=== PATIENT | male | born 1940 | race Caucasian/White ===

== ENCOUNTER 2016-09-06 04:23 | Emergency (ER) | payer MEDICARE, OTHER ==
[2016-09-06 05:18] VITALS: BP 123/65
--- NOTE | 2016-09-06 05:26 | ED ---
Harinder Carias Aidan, scribed for Delgado Gibson MD on 09/06/16 at 0503 . Lower Extremity - HPI Summary HPI Summary: 75 y/o male presents to the ED with a complaint of acute, moderate (8/10) episodes of LLE pain described as a cramping sensation that began 3 weeks ago. As a result of the pain, he saw Dr. Elkins who diagnosed him with a ganglion cyst on the left knee. Additionally, Dr. Elkins started the patient on a physical therapy regime that seemed to have exacerbated his leg pain. The pain is alleviated by standing on the left leg and aggravated when sitting down. Currently, he has no pain. Pt denies any Hx of clitting/DVT. 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 - History of Current Complaint Chief Complaint: EDExtremityLower Stated Complaint: LEFT LEG PAIN Time Seen by Provider: 09/06/16 04:36 Hx Obtained From: Patient Mechanism Of Injury: Unknown - possibly exacerbated by physical therapy Onset of Pain: Days - pain began 3 weeks ago and has persisted intermittently Onset/Duration: Weeks - pain is still present Severity Initially: Moderate Severity Currently: Moderate Pain Intensity: 8 Pain Scale Used: 0-10 Numeric Timing: Intermittent Location: Is Discrete @ - LLE, notibly in the hamstring and knee Character Of Pain: Aching Associated Signs And Symptoms: Positive: Knee Pain - left knee, Other - left knee ganglion cyst Aggravating Factor(s): Other - sitting down aggravates the pain Alleviating Factor(s): Other - standing on the left leg alleviates the pain Able to Bear Weight: Yes - Risk Factors Gout Risk Factors: Age Over 40, Male DVT Risk Factors: Smoking - Allergies/Home Medications Allergies/Adverse Reactions: Allergies Allergy/AdvReac Type Severity Reaction Status Date / Time No Known Allergies Allergy Verified 05/24/15 12:44 PMH/Surg Hx/FS Hx/Imm Hx Endocrine/Hematology History: Denies: Hx Diabetes Cardiovascular History: Reports: Hx Coronary Artery Disease, Hx Deep Vein Thrombosis, Hx Hypercholesterolemia, Hx Hypertension Denies: Hx Pacemaker/ICD Respiratory History: Reports: Other Respiratory Problems/Disorders - suspected apnea, witnessed apneas Denies: Hx Asthma Comment Only: Hx Sleep Apnea - Hx OF BEING EVALUATED CURRENTLY, APPT FEB 2013 GI History: Reports: Other GI Disorders - umbilical hernia repairs History: Reports: Other Problems/Disorders - bladder cancer, prostate removed Denies: Hx Renal Disease Musculoskeletal History: Reports: Hx Arthritis - HANDS, FEET, HIPS, Hx Back Problems - HX transverse process FX's, Other Musculoskeletal History - LUMBAR BACK PROBLEMS Sensory History: Reports: Hx Contacts or Glasses - GLASSES, 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 LAMINECTOMY L2-3,L3-4,L5-S1 02/16/13. right total hip Hx Anesthesia Reactions: No Infectious Disease History: No Infectious Disease History: Reports: Hx of Known/Suspected MRSA Denies: Hx Clostridium Difficile, Hx Hepatitis, Hx Human Immunodeficiency Virus (HIV), Hx Shingles, Hx Tuberculosis, Hx Known/Suspected VRE, Hx Known/ Suspected VRSA, History Other Infectious Disease, Traveled Outside the [place] in Last 30 Days - Family History Known Family History: Negative: Cardiac Disease - Social History Occupation: Retired Lives: With Family Alcohol Use: None Hx Substance Use: No Substance Use Type: Reports: None Hx Tobacco Use: Yes Smoking Status (MU): Heavy Every Day Tobacco Smoker Type: Cigarettes Amount Used/How Often: smoked 1ppd for 50+ years Length of Time of Smoking/Using Tobacco: 50+ years Have You Smoked in the Last Year: Yes Review of Systems Constitutional: Negative Eyes: Negative ENT: Negative Cardiovascular: Negative Respiratory: Negative Gastrointestinal: Negative Genitourinary: Negative Positive: Arthralgia - LLe pain, Other - ganglion cyst to left knee. Negative: Myalgia, Decreased ROM, Edema Skin: Negative Neurological: Negative Psychological: Normal All Other Systems Reviewed And Are Negative: Yes Physical Exam Triage Information Reviewed: Yes Vital Signs On Initial Exam: Initial Vitals Temp Pulse Resp BP Pulse Ox 98.7 F 83 16 137/75 97 09/06/16 04:25 09/06/16 04:25 09/06/16 04:25 09/06/16 04:25 09/06/16 04:25 Vital Signs Reviewed: Yes Appearance: Positive: No Pain Distress, Thin Skin: Positive: Warm Eyes: Positive: ELIAS ENT: Positive: Hearing grossly normal Respiratory/Lung Sounds: Positive: Breath Sounds Present Musculoskeletal: Positive: Other - no palpabe tenderness, mild pain with flexion at knee. Negative: Jeison Sign Left, Jeison Sign Right Neurological: Positive: Alert, Oriented to Person Place, Time Diagnostics - Vital Signs Vital Signs Temp Pulse Resp BP Pulse Ox 09/06/16 04:33 81 98 09/06/16 04:31 137/75 09/06/16 04:25 98.7 F 83 16 137/75 97 - Laboratory Lab Statement: Any lab studies that have been ordered have been reviewed, and results considered in the medical decision making process. Lower Extremity Course/Dx - Course Course Of Treatment: 75 y/o male presents to the ED with a complaint of acute, moderate (8/10) episodes of LLE pain described as a cramping sensation that began 3 weeks ago. He intends on following up with his primary to see whether or not to discontinue or change his current physican therapy regime that may have exacerbated his leg pain. - Diagnoses Provider Diagnoses: Leg pain Discharge - Discharge Plan Condition: Stable Disposition: HOME Discharge Disposition Comment: Please follow up with your primary care physician. Prescriptions: Naproxen TAB* [Naprosyn 250 mg TAB*] 500 mg PO BID #30 tab Patient Education Materials: Knee Pain (ED) Referrals: Felix May MD [Primary Care Provider] - The documentation as recorded by the Harinder simon Aidan accurately reflects the service I personally performed and the decisions made by me, Delgado Gibson MD.
== END 2016-09-06 05:15 | disposition home or self-care (01) ==
LOC: ED 04:23
DX: M79.605 Pain in left leg (principal); M67.462 Ganglion, left knee; M25.562 Pain in left knee; F17.210 Nicotine dependence, cigarettes, uncomplicated
CPT/HCPCS: 99282

== ENCOUNTER 2018-04-12 09:19 | Day surgery (SDC) | payer MEDICARE, OTHER ==
[~2018-04-12 09:19] MED LIST: Acetaminophen TAB* 325 MG PO PRN; Buffered Lidocaine 0.9% SYRIN* 5 ML/SYR SYRINGE INTRADERM ONE
[2018-04-12] MEDS ORDERED: Midazolam* 1 MG/ML 2 ML VIAL (2 MG) ONE (09:52)
[2018-04-12 10:49] VITALS: BP 149/67
[2018-04-12] MEDS ORDERED: acetaZOLAMIDE TAB* 250 MG ONE (13:59)
[2018-04-12] MEDS ORDERED: Tetracaine 0.5% OPTH.SOL 4 ML* 1 DROP BTL ONE (13:59)
[2018-04-12] MEDS ORDERED: Tropicamide 1% OPTH.SOL* BTL ONE (13:59)
[2018-04-12] MEDS ORDERED: Ketorolac 0.5% OPHTH (NF) 0.5 % 5 ML BTL ONE (13:59)
[2018-04-12] MEDS ORDERED: Cyclopentolate 1% OPTH.SOL* 2 ML BTL ONE (13:59)
[2018-04-12] MEDS ORDERED: Lidocaine 1%* 5 ML VIAL ONE (13:59)
[2018-04-12] MEDS ORDERED: Phenylephrine 2.5% OPTH.SOL* 2 ML BTL ONE (13:59)
[2018-04-12] MEDS ORDERED: Neomycin/Polymy/Dex OPHTH.OIN* 3.5 GM ONE (13:59)
[2018-04-12] MEDS ORDERED: Povidone Iodine 5% OPTH* 30 ML BTL ONE (13:59)
--- NOTE | 2018-04-12 22:08 | OP ---
DATE OF OPERATION: 04/12/18 - [facility] DATE OF : 42. SURGEON: Jagjit Collier MD. ANESTHESIA: Monitored anesthesia care. PREOPERATIVE DIAGNOSIS: Cataract, right eye. POSTOPERATIVE DIAGNOSIS: Cataract, right eye. OPERATIVE PROCEDURE: Extracapsular cataract extraction of the right eye with intraocular lens implant. IMPLANT: SN60WF 21.0 diopter lens to the right eye. COMPLICATIONS: None. DESCRIPTION OF PROCEDURE: The patient was given phenylephrine 2.5 % and cyclopentolate 1% eye drops to the operative eye in the preoperative area. The patient was taken to the operating room where a time-out was taken to identify the correct patient, site, and side of surgery. The patient's right eye was prepped and draped in the usual sterile fashion with 5% Betadine. A second time -out was taken to verify the correct patient, side, and site of surgery, as well as the correct lens implant. A lid speculum was placed to the right eye. A 1-mm paracentesis blade was used to make a clear corneal incision. Preservative-free 1% lidocaine was injected into the anterior chamber. DisCoVisc was then injected into the anterior chamber. A 2.75 mm keratome blade was used to make a triplanar incision. A cystotome initiated a capsulorrhexis, which was completed with Utrata forceps in a continuous and curvilinear manner. Hydrodissection of the lens was performed with BSS on a cannula. The lens could be spun in a capsular bag. The phacoemulsification handpiece was used with a [id number] technique to remove the nucleus. The I/A handpiece then removed the residual cortical lens material. DisCoVisc was injected to inflate the capsular bag. The planned SN60WF 21.0 diopter lens was injected into the capsular bag. The residual DisCoVisc was removed from the eye with the I/A handpiece. The corneal incisions were hydrated and no leaks occurred at physiologic pressure around 20 mmHg per palpation. The lid speculum was removed and drapes were removed. Maxitrol ointment was placed to the surface of the operative eye. An adhesive patch and shield was then placed on the operative eye. The patient was taken to the postoperative area in stable condition. [id number]/[facility] #: [id number] [facility]
== END 2018-04-12 10:54 | disposition home or self-care (01) ==
LOC: OREAST 09:19
PROVIDERS: ATTEND Student in an Organized Health Care Education/Training Program
DX: H25.11 Age-related nuclear cataract, right eye (principal); I10 Essential (primary) hypertension; Z85.51 Personal history of malignant neoplasm of bladder; I25.10 Atherosclerotic heart disease of native coronary artery without angina pectoris; H61.23 Impacted cerumen, bilateral; Z72.0 Tobacco use
CPT/HCPCS: A9270-GY; J2250; V2632

== ENCOUNTER 2018-04-19 08:36 | Day surgery (SDC) | payer MEDICARE, OTHER ==
[2018-04-19] MEDS ORDERED: fentaNYL* 50 MCG/ML 2 ML VIAL (100 MCG VIAL) ONE (09:03)
[2018-04-19] MEDS ORDERED: Midazolam* 1 MG/ML 2 ML VIAL (2 MG) ONE (09:03)
[2018-04-19 10:07] VITALS: BP 115/53
[2018-04-19] MEDS ORDERED: Phenylephrine 2.5% OPTH.SOL* 2 ML BTL ONE (11:00)
[2018-04-19] MEDS ORDERED: acetaZOLAMIDE TAB* 250 MG ONE (11:00)
[2018-04-19] MEDS ORDERED: Cyclopentolate 1% OPTH.SOL* 2 ML BTL ONE (11:00)
[2018-04-19] MEDS ORDERED: Neomycin/Polymy/Dex OPHTH.OIN* 3.5 GM ONE (11:00)
[2018-04-19] MEDS ORDERED: Ketorolac 0.5% OPHTH (NF) 0.5 % 5 ML BTL ONE (11:00)
[2018-04-19] MEDS ORDERED: Lidocaine 1%* 5 ML VIAL ONE (11:00)
[2018-04-19] MEDS ORDERED: Tetracaine 0.5% OPTH.SOL 4 ML* 1 DROP BTL ONE (11:00)
[2018-04-19] MEDS ORDERED: Povidone Iodine 5% OPTH* 30 ML BTL ONE (11:00)
[2018-04-19] MEDS ORDERED: Tropicamide 1% OPTH.SOL* BTL ONE (11:00)
--- NOTE | 2018-04-19 11:08 | OP ---
DATE OF OPERATION: 04/19/2018 - [facility] DATE OF : 1940. SURGEON: Jagjit Collier MD ANESTHESIA: Monitored anesthesia care. PREOPERATIVE DIAGNOSIS: Cataract, left eye. POSTOPERATIVE DIAGNOSIS: Cataract, left eye. OPERATIVE PROCEDURE: Extracapsular cataract extraction of the left eye with intraocular lens implant. IMPLANT: SN60WF 21.0 diopter lens to the left eye. COMPLICATIONS: None. DESCRIPTION OF PROCEDURE: The patient was given phenylephrine 2.5 % and cyclopentolate 1% eye drops to the operative eye in the preoperative area. The patient was taken to the operating room where a time-out was taken to identify the correct patient, site, and side of surgery. The patient's left eye was prepped and draped in the usual sterile fashion with 5% Betadine. A second time- out was taken to verify the correct patient, side, and site of surgery, as well as the correct lens implant. A lid speculum was placed to the left eye. A 1mm paracentesis blade was used to make a clear corneal incision. Preservative-free 1% lidocaine was injected into the anterior chamber. DisCoVisc was then injected into the anterior chamber. A 2.75 mm keratome blade was used to make a triplanar incision. A cystotome initiated a capsulorrhexis, which was completed with Utrata forceps in a continuous and curvilinear manner. Hydrodissection of the lens was performed with BSS on a cannula. The lens could be spun in a capsular bag. The phacoemulsification handpiece was used with a divide-and- conquer technique to remove the nucleus. The I/A handpiece then removed the residual cortical lens material. DisCoVisc was injected to inflate the capsular bag. The planned SN60WF 21.0 diopter lens was injected into the capsular bag. The residual DisCoVisc was removed from the eye with the I/A handpiece. The corneal incisions were hydrated and no leaks occurred at physiologic pressure around 20 mmHg per palpation. The lid speculum was removed and drapes were removed. Maxitrol ointment was placed to the surface of the operative eye. An adhesive patch and shield was then placed on the operative eye. The patient was taken to the postoperative area in stable condition. [id number]/[facility] #: [id number] [facility]
== END 2018-04-19 10:18 | disposition home or self-care (01) ==
LOC: OREAST 08:36
PROVIDERS: ATTEND Student in an Organized Health Care Education/Training Program
DX: H25.12 Age-related nuclear cataract, left eye (principal); I10 Essential (primary) hypertension; Z85.51 Personal history of malignant neoplasm of bladder; F17.210 Nicotine dependence, cigarettes, uncomplicated
CPT/HCPCS: A9270-GY; J2250; J3010; V2632

== ENCOUNTER 2018-06-05 10:58 | Emergency (ER) | payer MEDICARE, OTHER ==
[2018-06-05] MEDS ORDERED: Naproxen TAB* 250 MG PO ONE (11:27)
[2018-06-05] MEDS ORDERED: Naproxen TAB* 250 MG ONE (11:34)
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
[2018-06-05 13:17] VITALS: BP 180/81
== END 2018-06-05 13:16 | disposition home or self-care (01) ==
LOC: ED 10:58
DX: S39.012A Strain of muscle, fascia and tendon of lower back, initial encounter (principal); W06.XXXA Fall from bed, initial encounter; Y92.003 Bedroom of unspecified non-institutional (private) residence as the place of occurrence of the external cause; I25.10 Atherosclerotic heart disease of native coronary artery without angina pectoris; I10 Essential (primary) hypertension; Z85.51 Personal history of malignant neoplasm of bladder; Z96.641 Presence of right artificial hip joint; F17.210 Nicotine dependence, cigarettes, uncomplicated
CPT/HCPCS: 72100; 99282; A9270-GY